=== PATIENT | male | born 1995 ===

== ENCOUNTER 2017-10-23 09:31 | Emergency (ER) | payer MEDICAID ==
[2017-10-23 09:40] VITALS: BP 137/84
--- NOTE | 2017-10-23 10:15 | ED ---
Throat Pain/Nasal Congestion - HPI Summary HPI Summary: 22-year-old male presents with left ear pain for the past week. He took some pain medication last week and it seems to get better. got worst overnight. He states has not been swimming. Denies any headache. No sore throat. No sinus congestion. Does not have a history of earaches. No fevers. No medical conditions. speaks Ivorian. - History of Current Complaint Chief Complaint: UCEar Time Seen by Provider: 10/23/17 10:03 - Allergies/Home Medications Allergies/Adverse Reactions: Allergies Allergy/AdvReac Type Severity Reaction Status Date / Time No Known Allergies Allergy Verified 10/23/17 09:40 PMH/Surg Hx/FS Hx/Imm Hx Endocrine/Hematology History: Denies: Hx Anticoagulant Therapy Respiratory History: Denies: Hx Asthma Infectious Disease History: No Infectious Disease History: Denies: Traveled Outside the [place] in Last 30 Days - Family History Known Family History: Negative: Respiratory Disease - Social History Alcohol Use: None Substance Use Type: Reports: None Smoking Status (MU): Never Smoked Tobacco Review of Systems Negative: Fever Positive: Ear Ache Negative: Chest Pain Negative: Shortness Of Breath All Other Systems Reviewed And Are Negative: Yes Physical Exam Triage Information Reviewed: Yes Vital Signs On Initial Exam: Initial Vitals Temp Pulse Resp BP Pulse Ox 98 F 68 16 137/84 99 10/23/17 09:34 10/23/17 09:34 10/23/17 09:34 10/23/17 09:34 10/23/17 09:34 Vital Signs Reviewed: Yes Appearance: Positive: Well-Appearing Skin: Positive: Warm, Dry Head/Face: Positive: Normal Head/Face Inspection Eyes: Positive: Normal, EOMI, SAMANTHA, Conjunctiva Clear ENT: Positive: Pharynx normal, TMs normal, Other - pain with manipulation of tragus, left ear canal edematous and erythematous Neck: Positive: Supple, Nontender, No Lymphadenopathy Respiratory/Lung Sounds: Positive: Clear to Auscultation, Breath Sounds Present Cardiovascular: Positive: Normal, RRR Abdomen Description: Positive: Nontender, Soft Bowel Sounds: Positive: Present Musculoskeletal: Positive: Normal Neurological: Positive: Normal Psychiatric: Positive: Normal Diagnostics - Vital Signs Vital Signs Temp Pulse Resp BP Pulse Ox 10/23/17 09:34 98 F 68 16 137/84 99 - Laboratory Lab Statement: Any lab studies that have been ordered have been reviewed, and results considered in the medical decision making process. EENT Course/Dx - Course Course Of Treatment: 22-year-old male presents with left ear pain for the past week. He took some pain medication last week and it seems to get better. got worst overnight. He states has not been swimming. Denies any headache. No sore throat. No sinus congestion. Does not have a history of earaches. No fevers. No medical conditions. On exam left TM. left ear canal edematous and erythematous. will treat with ciprodex. instruction explained with maintenance engineer. patient understand and agrees with plan. - Differential Diagnoses Differential Diagnoses: Otitis Externa, Otitis Media, URI/Bronchitis - Diagnoses Provider Diagnoses: Otitis externa Discharge - Sign-Out/Discharge Documenting (check all that apply): Patient Departure All imaging exams completed and their final reports reviewed: No Studies - Discharge Plan Condition: Good Disposition: HOME Prescriptions: Ciproflox/Dexameth OTIC.SUSP* [Ciprodex OTIC.SUSP*] 4 drop OTIC BID #1 btl Patient Education Materials: Otitis Externa (ED) Print Language: JAPANESE Referrals: No Primary Care Phys,NOPCP [Primary Care Provider] - Additional Instructions: Use 4 drops twice a day for 7 days Take Tylenol or ibuprofen for pain every 6 hours as needed Avoid swimming until done with antibiotic Return to ED if develop any new or worsening symptoms - Billing Disposition and Condition Condition: GOOD Disposition: Home - Attestation Statements Provider Attestation: I was available for consult. This patient was seen by the AIYANA. The patient was not presented to, seen by, or examined by me. -Alanna
== END 2017-10-23 10:30 | disposition home or self-care (01) ==
LOC: UCEAST 09:31
DX: H60.92 Unspecified otitis externa, left ear (principal)
CPT/HCPCS: 99202; G0463